=== PATIENT | female | born 2000 | race Hispanic/Latino ===

== ENCOUNTER 2020-10-18 09:01 | Outpatient (CLI) | payer MEDICAID, SELFPAY ==
--- NOTE | ~2020-10-18 | US_ITS ---
EXAMINATION: US OB <= 14 weeks fetus DATE: 10/18/2020 09:47 INDICATION: Encounter for supervision of normal , unspecified trimester, dating TECHNIQUE: Real-time pelvic transabdominal and transvaginal ultrasound was performed. COMPARISON: None. FINDINGS: The uterus measures 12.1 x 7.8 x 7.5 cm. There is an intrauterine gestational sac. A yolk sac is identified. heart motion is identified measuring 157 beats per minute (bpm) by M-mode Do ppler. The crown rump length measures 6.9 cm , which correlates with an estimated gestational a ge of 13 weeks and 1 day(s) (+/-) 8 day(s). The left ovary is not visualized however no left adnexal abnormality is seen. The right ovary measure s 2.8 x 2.1 x 2.0 cm. There is normal vascular flow in the right ovary. There is no free fluid in the pelvis. IMPRESSION: 1. Live intrauterine with an estimated gestational age of 13 weeks and 1 day(s) (+/-) 8 day (s) and an estimated delivery date of 04/24/2021. Reviewed, dictated and finalized at location B. IMPRESSION: 1. Live intrauterine with an estimated gestational age of 13 weeks an d 1 day(s) (+/-) 8 day(s) and an estimated delivery date of 04/24/2021.
== END 2020-10-18 09:02 | disposition home or self-care (01) ==
LOC: ANHIMG 09:18
PROVIDERS: PCP Obstetrics & Gynecology; Visit Provider Obstetrics & Gynecology
DX: Z34.90 Encounter for supervision of normal pregnancy, unspecified, unspecified trimester (principal); Z3A.13 13 weeks gestation of pregnancy
CPT/HCPCS: 76801

== ENCOUNTER 2020-12-11 07:49 | Outpatient (CLI) | payer OTHER, SELFPAY ==
--- NOTE | ~2020-12-11 | US_ITS ---
EXAMINATION: US OB follow up DATE: 12/11/2020 08:28 INDICATION: Routine care during second trimester . TECHNIQUE: Real-time ultrasound of the pelvis was performed. The interpreting radiologist was not pre sent for the study. COMPARISON: 10/18/2020 FINDINGS: There is a single living fetus in vertex presentation. The placenta is anterior with caudal margin 4 .4 cm from the internal cervical os. heart rate is 152 beats per minute (bpm). The amniotic flu id index is 18.6 cm, which is normal (5th%-95%: 9.3-21.2 cm at 20 weeks estimated gestational age). The following biometric data were obtained: BPD: 4.9 cm -> 20 weeks 6 days Head circumference: 19.1 cm -> 21 weeks 2 days Abdominal circumference: 16.7 cm -> 21 weeks 5 days Femur length: 3.7 cm -> 21 weeks 6 days These measurements are concordant. Head circumference to abdominal circumference ratio: 1.14 (normal range 1.06-1.24). Estimated weight: 444 g (+/-) 67 g or 1 lbs. 0 oz. (+/-) 2 oz. IMPRESSION: 1. Single living fetus in vertex presentation with heart rate of 152 bpm. 2. Normal amniotic fluid index of 18.6 cm. 3. Estimated weight is 87th percentile by Hadlock criteria when 04/24/2021 is used as the estimat ed date of delivery (EBLLA). Please correlate with clinical information or earlier ultrasounds for most accurate BELLA. Reviewed, dictated and finalized at location B. IMPRESSION: 1. Single living fetus in vertex presentation with heart rate of 152 bpm. 2. Normal amniotic fluid index of 18.6 cm. 3. Estimated weight is 87th percentile by Hadlock criteria when 04/24/2021 is used as the estimated date of delivery (BELLA). Please correlate with clinical information or earlier ultrasounds for most accurate BELLA.
== END 2020-12-11 07:50 | disposition home or self-care (01) ==
PROVIDERS: PCP Obstetrics & Gynecology; Visit Provider Obstetrics & Gynecology
DX: Z34.90 Encounter for supervision of normal pregnancy, unspecified, unspecified trimester (principal); Z3A.00 Weeks of gestation of pregnancy not specified
CPT/HCPCS: 76816

== ENCOUNTER 2021-02-14 12:29 | Outpatient (CLI) | payer OTHER, SELFPAY ==
--- NOTE | ~2021-02-14 | US_ITS ---
EXAMINATION: US OB follow up DATE: 02/14/2021 13:28 INDICATION: Supervision of normal third trimester TECHNIQUE: Real-time ultrasound of the pelvis was performed. The interpreting radiologist was not pre sent for the study. COMPARISON: 11/21/2020 FINDINGS: There is a single living fetus in vertex presentation. The placenta is anterior. card iac activity and movement are noted. heart rate is 144 beats per minute (bpm). The amniot ic fluid index is 12.4 cm which is normal. The following biometric data were obtained: Biparietal diameter (BPD): 7.4 cm; head circumference (HC): 27.5 cm; abdominal circumference (AC): 25 .9 cm; femur length (FL): 5.7 cm. These measurements are concordant. Estimated weight is 1508 g +/- 226 g, which correlates with the 35th percentile when 04/24/2021 i s used as estimated date of delivery. As single measurements, these parameters are each equal to the following estimated gestational ages w ith ranges of +/- 2 standard deviations: BPD: 30 weeks 0 days ( 27 weeks 6 days - 32 weeks 1 days). HC: 30 weeks 1 days ( 27 weeks 1 days - 33 weeks 1 days). AC: 30 weeks 0 days ( 27 weeks 1 days - 33 weeks 0 days). FL: 30 weeks 1 days ( 28 weeks 0 days - 32 weeks 1 days). estimated gestational age based solely on measurements from this exam is 30 weeks 1 days +/- 2 weeks 1 days. IMPRESSION: 1. Single living fetus in vertex presentation. 2. Estimated weight is 1508 g +/- 226 g, which correlates with the 35th percentile when 2 is used as estimated date of delivery. 3. Normal amniotic fluid index. Reviewed, dictated and finalized at location A. IMPRESSION: 1. Single living fetus in vertex presentation. 2. Estimated weight is 1508 g +/- 226 g, which correlates with the 35th p ercentile when 04/24/2021 is used as estimated date of delivery. 3. Normal amniotic fluid index.
== END 2021-02-14 12:30 | disposition home or self-care (01) ==
LOC: ANHIMG 12:38
PROVIDERS: PCP Obstetrics & Gynecology; Visit Provider Obstetrics & Gynecology
DX: Z34.03 Encounter for supervision of normal first pregnancy, third trimester (principal); Z3A.30 30 weeks gestation of pregnancy
CPT/HCPCS: 76816

== ENCOUNTER 2021-03-01 16:38 | Outpatient (RCR) | payer OTHER, SELFPAY | END 2021-05-23 21:01 | disposition home or self-care (01) | LOC: ANHOBOP 16:38 | PROVIDERS: Visit Provider Obstetrics & Gynecology | DX: O36.5990 Maternal care for other known or suspected poor fetal growth, unspecified trimester, not applicable or unspecified (principal); Z3A.00 Weeks of gestation of pregnancy not specified | CPT/HCPCS: 99199 ==